=== PATIENT | male | born 1995 | race American Indian/Alaskan Native ===

== ENCOUNTER 2017-11-19 10:46 | Outpatient (CLI) | payer BC ==
--- NOTE | 2017-11-22 16:25 | Magnetic Resonance Report ---
FINAL REPORT EXAM: MR LE JOINT LT WO CON HISTORY: DERANGEMENT OF LT SHOULDER TECHNIQUE: Multiplanar MRI of the left shoulder. No contrast administered. PRIORS: None. FINDINGS: Rotator cuff tendons appear grossly intact. Glenoid labrum grossly unremarkable. Bicipital tendon is in normal location and has normal contour and signal intensity. Very mild subchondral cystic change in the posterosuperior humeral head. No bony Bankart or Hill-Sachs lesions. Acromioclavicular joint maintained. Undersurface of the acromion appears mildly curved. Acromiohumeral interval measures 6-7 mm. No significant glenohumeral joint effusion. IMPRESSION: 1. No apparent internal derangement.
== END 2017-11-19 10:47 | disposition home or self-care (01) ==
LOC: MRI 10:46
DX: M24.812 Other specific joint derangements of left shoulder, not elsewhere classified (principal)
CPT/HCPCS: 73721